=== PATIENT | male | born 1965 | race African-American/Black ===

== ENCOUNTER 2018-09-26 09:18 | Inpatient (IN) ==
--- NOTE | 2018-09-20 08:21 | EKG Report ---
Test Performed on : 09/20/2018 08:01:41 AM Test Reason : PAT Blood Pressure : / mmHG Vent. Rate : 059 BPM Atrial Rate : 059 BPM P-R Int : 150 ms QRS Dur : 080 ms QT Int : 408 ms P-R-T Axes : 070 049 065 degrees QTc Int : 403 ms Sinus bradycardia. with sinus arrhythmia. Possible Left atrial enlargement Borderline ECG When compared with ECG of 15-APR-2016 09:17, No significant change was found Confirmed by Tomasa TAFOYA, Satya Jimenez ([id number]) on 09/23/2018 9:43:53 AM
[2018-09-20 08:37] LABS: URINE SOURCE CLEAN CATCH
[2018-09-20 08:39] LABS: BASO# 0.03 X1000 (0.0-0.2); BASO% 0.3 % (0.0-0.8); EOS# 1.12 X1000 (0.0-0.7); HEMATOCRIT 39.1 % (42.0-52.0); HEMOGLOBIN 13.6 g/dL (14.0-18.0); LYMPH# 1.29 X1000 (1.2-3.4); LYMPH% 13.9 % (20.5-51.1); MCH 31.5 PG (27-31); MCHC 34.8 g/dL (33-37); MCV 90.5 FL (81-99); MONO# 0.76 X1000 (0.11-0.59); MONO% 8.2 % (1.7-9.3); MPV 10.1 FL (7.4-10.4); NEUT# 6.11 X1000 (1.4-6.5); NEUT% 65.6 % (42.2-75.2); PLT 210 X1000 (130-400); RBC 4.32 XMIL (4.7-6.1); WBC 9.31 X1000 (4.8-10.8)
[2018-09-20 08:43] LABS: BILIRUBIN URINE NEGATIVE (NEGATIVE); BLOOD URINE NEGATIVE (NEGATIVE); COLOR YELLOW; GLUCOSE URINE NEGATIVE (NEGATIVE); KETONE URINE NEGATIVE (NEGATIVE); LEUKOCYTES URINE NEGATIVE (NEGATIVE); NITRITE URINE NEGATIVE (NEGATIVE); PH URINE 5.5; PROTEIN URINE NEGATIVE (NEGATIVE); SP GRAVITY URINE 1.009; TURBIDITY URINE CLEAR (CLEAR); UR EPITHELIAL CELLS <10 /HPF (<10); URINE BACTERIA NEGATIVE /HPF; URINE RBC <10 /HPF (<10); URINE WBC <10 /HPF (<10); UROBILINOGEN URINE NORMAL (NORMAL)
[2018-09-20 08:45] LABS: INR 0.88; PROTIME 12.6 Seconds (11.0-16.0)
[2018-09-20 08:46] LABS: PTT 29.6 Seconds (22.3-41.8)
[2018-09-20 09:19] LABS: AGAP 9; BUN 10 mg/dL (8-22); CALCIUM 8.5 mg/dL (8.8-10.2); CHLORIDE 102 mmol/L (98-107); COSMO 279; CREATININE 0.8 mg/dL (0.7-1.2); ESTIMATED GFR > 60; GLUCOSE 104 mg/dL (70-104); POTASSIUM 4.1 mmol/L (3.5-5.1); SODIUM 140 mmol/L (136-145); TCO2 29 mmol/L (25-35)
[~2018-09-26 09:18] MED LIST: DIPRIVAN 1% ONE; XYLOCAINE-MPF 2% ONE
[2018-09-26] MEDS ORDERED: PEPCID ONE ×2 (09:28→09:29)
[2018-09-26] MEDS ORDERED: CELEBREX ONE ×2 (09:28→09:29)
[2018-09-26] MEDS ORDERED: COLACE ONE ×2 (09:28→09:29)
[2018-09-26] MEDS ORDERED: REGLAN ONE (09:29)
[2018-09-26] MEDS ORDERED: LYRICA ONE (09:29)
[2018-09-26] MEDS ORDERED: KEFZOL 2 GM/D5W 2 GM/50 ML IVPB ONE (09:29)
[2018-09-26] MEDS ORDERED: LR 1,000 ML ONE (09:29)
[2018-09-26] MEDS ORDERED: SODIUM CHLORIDE 0.9% ONE (10:31)
[2018-09-26] MEDS ORDERED: CYKLOKAPRON 1,000 MG/NS 1,000 MG/100 ML IVPB ONE (10:31)
[2018-09-26] MEDS ORDERED: DURAMORPH ONE (10:31)
[2018-09-26] MEDS ORDERED: SENSORCAINE-MPF 0.5%/EPI 1:200,000 ONE (10:31)
[2018-09-26] MEDS ORDERED: TORADOL ONE (10:31)
[2018-09-26] MEDS ORDERED: EXPAREL 1.3% ONE (10:32)
[2018-09-26] MEDS ORDERED: NEOSPORIN G.U. IRRIGANT ONE (10:32)
[2018-09-26] MEDS ORDERED: DECADRON ONE (12:15)
[2018-09-26] MEDS ORDERED: ZOFRAN ONE (12:15)
[2018-09-26] MEDS ORDERED: FENTANYL ONE (12:18)
[2018-09-26] MEDS ORDERED: XYLOCAINE-MPF 2% ONE (12:48)
[2018-09-26 12:53] LABS: BILIRUBIN URINE NEGATIVE (NEGATIVE); BLOOD URINE NEGATIVE (NEGATIVE); COLOR YELLOW; GLUCOSE URINE NEGATIVE (NEGATIVE); KETONE URINE NEGATIVE (NEGATIVE); LEUKOCYTES URINE NEGATIVE (NEGATIVE); NITRITE URINE NEGATIVE (NEGATIVE); PH URINE 5.5; PROTEIN URINE NEGATIVE (NEGATIVE); SP GRAVITY URINE 1.008; TURBIDITY URINE CLEAR (CLEAR); URINE SOURCE CATH; UROBILINOGEN URINE NORMAL (NORMAL)
[2018-09-26 12:54] LABS: UR EPITHELIAL CELLS <10 /HPF (<10); URINE BACTERIA NEGATIVE /HPF; URINE RBC <10 /HPF (<10); URINE WBC <10 /HPF (<10)
[2018-09-26] MEDS: DILAUDID ONE ×8 (13:45→14:22)
[2018-09-26] MEDS ORDERED: PHENERGAN ONE (13:57)
[2018-09-26] MEDS ORDERED: NS 1,000 ML ONE (14:15)
[2018-09-26] MEDS ORDERED: NS 1,000 ML IV SCH (14:30)
[2018-09-26] MEDS ORDERED: ZOFRAN ODT PO PRN (14:39)
[2018-09-26] MEDS ORDERED: OXY IR PO PRN (14:45)
[2018-09-26] MEDS ORDERED: MORPHINE IV PRN ×3 (14:45)
[2018-09-26] MEDS ORDERED: ZOFRAN IV PRN (14:45)
[2018-09-26] MEDS ORDERED: AMBIEN PO PRN (14:45)
--- NOTE | 2018-09-26 15:48 | OPERATIVE NOTE ---
PROCEDURE DATE: 09/26/2018 PREOPERATIVE DIAGNOSIS: Avascular necrosis, right hip. POSTOPERATIVE DIAGNOSIS: Avascular necrosis, right hip. PROCEDURE: Anterior hip replacement, right hip. SURGEON: Jose Luis Prado MD. MOLD HOLDER: SNEHAL Johnson. Mr. Zamarripa was necessary for proper retraction and manipulation of the leg. ANESTHESIA: General. COMPLICATION: None. PROCEDURE IN DETAIL: This 53-year-old male presents for a total hip replacement of collapsing avascular necrosis of the right hip. Risks, benefits, and no guarantees were discussed, and he was willing to proceed. He was taken to the operating room and satisfactory anesthesia obtained. The patient was placed on the Encinal table and prep and drape undertaken in the usual sterile fashion. A time-out was taken to confirm operative site, procedure, and patient. The anterior approach to the right hip was then undertaken beginning with an incision 1 cm distal and lateral to the anterior superior iliac spine and carried over the anterior thigh slightly laterally distally for 12 cm. Dissection was carried down through the skin and subcutaneous fat to the fascia of the tensor fascia titi. This was then split in line with the incision and blunt dissection under taken down to the anterior hip capsule. Cobra retractors were placed over the superior and inferior aspect of the femoral neck and a capsulotomy incision made. At this point, an AP pelvis was made to reference leg lengths for the hip replacement. An osteotomy was made roughly 8 mm above the lesser trochanter and the femoral head removed. A small Cobra retractor placed directly on the anterior acetabular bone to protect the anterior neurovascular bundle during reaming. Reaming up to a 55 reamer was undertaken. Slight inner wall penetration at the fovea was noted. A 56 cup trial was noted to be stable in the acetabular socket with good corticocancellous and structural bone. To bone graft the fovea, some shavings of the corticocancellous bone were packed into this and, under fluoroscopic guidance, a [place] KIRK coated 56 outer diameter cup impacted into the acetabulum in roughly 45 degrees of abduction and 10-15 degrees of anteversion. Two additional 25 length screws were placed through the cup and into the bone for additional fixation. A 36 mm inner diameter 0 degree polyethylene bearing was then impacted into the cup. The cup, bone, and polyethylene bearing shell interface was checked and noted to be stable. Traction was released off the leg and the Encinal table used to extend and externally rotate the proximal femur for broaching. Sequential broaching was undertaken up to an Active 7 stem which had good axial and rotational stability. A standard neck with a +5 36 trial head reproduced leg length and was stable. Trial implant was removed and a size 7 standard collar active stem impacted into the proximal femur with secure axial and rotational stability. A +5 neck 36 mm ceramic head was then impacted onto this and the hip reduced. Stability was assessed by dropping the leg all the way to the floor with the hip extended and externally rotated roughly 55% to 60% degrees without any dislocation. Leg lengths were roughly equal. An AP and lateral x- rays demonstrated good alignment of the prosthesis. The wound was copiously irrigated with irrigant. A Hemovac drain was placed. The deep capsule and subcutaneous and skin was injected with Exparel for pain management. The wound was then closed in layers with a running V-Loc suture in the fascia of the tensor fascia, 2-0 Vicryl in the subcutaneous and skin leelee on the skin edges. Sterile dressings completed the closure, and the patient was recovered from anesthesia and transferred to the recovery room in stable condition. No intraoperative complications were noted. Instrument count and sponge count were correct at the time of closure. cc: Brian Prado MD
[2018-09-26] MEDS ORDERED: CYKLOKAPRON 1,000 MG in NS 100 ML IV ONE (18:00)
[2018-09-26] MEDS: TYLENOL PO SCH ×2 (18:18→22:05)
[2018-09-26] MEDS: ULTRAM PO SCH ×2 (18:19→22:03)
--- NOTE | 2018-09-26 18:50 | PROGRESS NOTE ---
DATE: 09/26/2018 Mr. Perrin is seen status post anterior hip replacement. He is afebrile with stable vital signs the present time. He appears to be motor and sensory intact with good quadriceps and hamstring function as well as ankle dorsi and plantar flexion. His bandage is clean and dry. He is comfortable the present time. We will plan on mobilizing him, discharge home possibly tomorrow. cc: Brian Prado MD
[2018-09-26] MEDS: NICODERM PATCH TD SCH (19:53)
[2018-09-26] MEDS: CELEBREX PO SCH (22:03)
[2018-09-26] MEDS: KEFZOL 2 GM/D5W 2 GM/50 ML IVPB IV SCH (22:05)
[2018-09-26] MEDS: PERIDEX MT SCH (22:06)
[2018-09-26] MEDS: COLACE PO SCH (22:06)
[2018-09-27] MEDS: OXY IR PO PRN ×3 (00:33→12:11)
[2018-09-27] MEDS: TYLENOL PO SCH ×2 (03:13→08:22)
[2018-09-27] MEDS: ULTRAM PO SCH ×2 (03:13→08:22)
[2018-09-27] MEDS: KEFZOL 2 GM/D5W 2 GM/50 ML IVPB IV SCH (06:18)
[2018-09-27 07:07] LABS: HEMATOCRIT 31.9 % (42.0-52.0)
--- NOTE | 2018-09-27 07:49 | PROGRESS NOTE ---
DATE: 09/27/2018 SUBJECTIVE: Mr. Perrin is seen status post anterior hip replacement. OBJECTIVE: At the present time, he is afebrile with stable vital signs. His incision is clean and dry. His motor and sensory intact. We will plan on mobilizing him today and changing out his bandage and discontinuing all lines. He can be discharged home for outpatient followup. We will see him back in 2 weeks. He is to continue his regular medicines and also [place] 10 as needed for pain and aspirin 325 twice a day for DVT prophylaxis. He is to be partial weightbearing on the right hip. We will see him back in 2 weeks or sooner for any worsening signs or symptoms. cc: Brian Prado MD
[2018-09-27 07:50] LABS: AGAP 10; BUN 15 mg/dL (8-22); CALCIUM 8.2 mg/dL (8.8-10.2); CHLORIDE 104 mmol/L (98-107); COSMO 281; ESTIMATED GFR > 60; GLUCOSE 110 mg/dL (70-104); POTASSIUM 4.9 mmol/L (3.5-5.1); SODIUM 140 mmol/L (136-145); TCO2 26 mmol/L (25-35)
[2018-09-27] MEDS: CELEBREX PO SCH (08:22)
[2018-09-27] MEDS: NICODERM PATCH TD SCH (08:22)
[2018-09-27] MEDS: PERIDEX MT SCH (08:23)
[2018-09-27] MEDS: COLACE PO SCH (08:23)
[2018-09-27] MEDS ORDERED: PEPCID PO SCH (09:00)
[2018-09-27] MEDS ORDERED: ASPIRIN PO SCH (09:00)
[2018-09-27 12:13] VITALS: BP 141/81
== END 2018-09-27 15:10 | disposition home or self-care (01) | DRG 470 ==
LOC: SURHOLD 09:18 → 4N 11:55
PROVIDERS: ADMIT Orthopaedic Surgery Adult Reconstructive Orthopaedic Surgery; ATTEND Orthopaedic Surgery Adult Reconstructive Orthopaedic Surgery
CPT/HCPCS: 76000; 80048; 81001; 85014; 85018; 85025; 85610; 85730; 86850; 86900; 86901; 93005; 94761; 94799; 97110; 97116; 97162; 97530; A9270; C9290; J0690; J1100; J1170; J1885; J2274; J2275; J2405; J2550; J3010; J7030; J7120; Q9974

== ENCOUNTER 2019-05-25 11:59 | Inpatient (IN) ==
[2019-05-25] MEDS ORDERED: NS 1,000 ML IV ONE ×3 (15:10→17:23)
[2019-05-25 15:59] LABS: BASO# 0.01 X1000 (0.0-0.2); BASO% 0.1 % (0.0-0.8); EOS# 0.03 X1000 (0.0-0.7); EOS% 0.2 % (0.0-10.0); HEMATOCRIT 43.8 % (42.0-52.0); HEMOGLOBIN 15.2 g/dL (14.0-18.0); IMM GRAN# 0.03 X1000 (0.0-0.04); IMM GRAN% 0.2 % (0.0-0.5); MCH 29.8 PG (27-31); MCHC 34.7 g/dL (33-37); MCV 85.9 FL (81-99); MONO# 1.22 X1000 (0.11-0.59); MONO% 8.3 % (1.7-9.3); NEUT# 11.21 X1000 (1.4-6.5); NEUT% 76.2 % (42.2-75.2); PLT 261 X1000 (130-400); RDW 14.6 % (11.5-14.5)
[2019-05-25 16:06] LABS: BILIRUBIN URINE NEGATIVE (NEGATIVE); BLOOD URINE NEGATIVE (NEGATIVE); CLARITY CLEAR (CLEAR); COLOR YELLOW; GLUCOSE URINE NEGATIVE (NEGATIVE); KETONE URINE 1+(Small) mg/dL (NEGATIVE); LEUKOCYTES URINE TRACE (NEGATIVE); NITRITE URINE NEGATIVE (NEGATIVE); PH URINE 6.5; PROTEIN URINE TRACE mg/dL (NEGATIVE); SP GRAVITY URINE 1.015; UROBILINOGEN URINE NORMAL
[2019-05-25] MEDS ORDERED: ZOFRAN IV ONE (16:18)
--- NOTE | 2019-05-25 16:19 | PROVIDER DOCUMENTATION ---
HPI-Abdominal Pain/GI Problem - General Chief Complaint: Return/Recheck Stated Complaint: VOMITTING Time Seen by Provider: 05/25/19 15:10 Source: patient Allergies/Adverse Reactions: Patient Allergies Allergy/AdvReac Type Severity Reaction Status Date / Time No Known Allergies Allergy Verified 05/25/19 14:23 Home Medications: Home Medication List Medication Instructions Recorded Confirmed Last Taken Type NK [No Home Medications] 05/23/19 05/25/19 Unknown History - History of Present Illness-ABD Nature of Presenting Problems: 54 yobm presents to the ED today for vomiting. he reports he was seen here on Tuesday, he states he got here vomiting and left vomiting. he denies abdominal pain, reports it is sore from vomiting. he reports he was told he had a UTI but did not receive any prescriptions. patient is a poor historian. he has a dry cough on assessment. when i asked how long he has had the cough- he stated "i smoke too many cigarettes if that's what you are hinting at". patient is warm to touch, denies fever at home. patient appears sick. diaphoretic on assessment. no distress noted. Abdominal Pain Onset Location: reports: generalized abdomen Pain Radiation: reports: no radiation Quality of Pain: reports: other (soreness) Severity in ED: reports: moderate Onset/Duration: reports: 3 days ago Timing: reports: still present Modifying Factors: worse with: vomiting Associated Symptoms: reports: cough, diaphoresis, fatigue, nausea, vomiting. denies: anxiety, arm pain, chest pain, constipation, diarrhea, dizziness, fever/chills, genitourinary problems, headaches, heartburn, shortness of breath, syncope Last BM: unsure Dark Stools Present?: reports: none noticed Rectal Bleeding: reports: none Rectal Pain: reports: none Bruising or Bleeding Gums?: No Similar Symptoms Previously?: Yes Recently seen or treated by another doctor?: Yes Review of Systems - Adult - REVIEW OF SYSTEMS - ADULT Constitutional: reports: no symptoms reported. denies: chills, fever Eyes: reports: no symptoms reported Ears, Nose, Mouth & Throat: reports: no symptoms reported Cardiovascular: reports: no symptoms reported. denies: chest pain, palpitations Respiratory: reports: cough. denies: shortness of breath, wheezing Gastrointestinal: reports: abdominal pain, nausea, vomiting. denies: constipation, diarrhea Genitourinary: reports: no symptoms reported. denies: frequency, urgency Musculoskeletal: reports: no symptoms reported Integumentary: reports: no symptoms reported Neurological: reports: no symptoms reported. denies: dizziness/vertigo, headache/migraines Psychiatric: reports: no symptoms reported Endocrine: reports: no symptoms reported Hematologic/Lymphatic: reports: no symptoms reported Allergic/Immunologic: reports: no symptoms reported All Other Systems: Reviewed and Negative Past History - Adult - PAST MEDICAL HISTORY-ADULT Review of Records: reports: Old Records Reviewed, Nursing Assessment Review, Medications Reviewed Major Childhood Illnesses: reports: denies history Cardiovascular: reports: denies history Respiratory: reports: denies history Gastrointestinal: reports: GERD, ulcer Obstetrical/Gynecological: reports: denies history Genitourinary: reports: denies history Musculoskeletal: reports: chronic pain (shoulder, legs) Neurological: reports: denies history Psychiatric: reports: denies history Endocrine/Immune: reports: denies history Other Conditions: reports: denies history - PRIOR SURGERIES/PROCEDURES Surgical/Procedure History: reports: reviewed, not pertinent, orthopedic (extremity) (leg reconstructive sx) - IMMUNIZATION STATUS Childhood Immunizations: See Nurse Assessment Flu Vaccine: See Nurse Assessment - FAMILY HISTORY Family History: reviewed, not pertinent - SOCIAL HISTORY Smoking: cigarettes Provider spent 3-5 mins advising pt. on dangers of tobacco.: Discussed manners to quit use, and f/u contacts for add'l counseling. Physical Exam-General - PHYSICAL EXAM-ADULT Initial Vital Signs Reviewed: Yes - CONSTITUTIONAL General Appearance: alert, mild distress - EYES Eyes: PERRL/EOMI - HEAD, EARS, NOSE, MOUTH & THROAT HENMT: normocephalic/atraumatic, moist mucous membranes - NECK Neck: full range of motion, supple - RESPIRATORY Respiratory: chest non-tender, normal breath sounds, no pleuratic chest pain, no respiratory distress, no accessory muscle use, crackles (bilateral lower lobes), wheezing (bilateral) - CARDIOVASCULAR Cardiovascular: regular rate, rhythm, no edema, no JVD - GASTROINTESTINAL (ABDOMEN) Abdominal Exam: normal bowel sounds, non tender, soft. negative: distended, g uarding, rigid, rebound - LYMPHATIC Lymphatic: no adenopathy - MUSCULOSKELETAL Back Exam: no CVA tenderness, no vertebral tenderness Extremity: normal range of motion, normal capillary refill - SKIN Integumentary: normal color, normal turgor, warm/dry - NEUROLOGIC Neurologic: grossly normal, no motor/sensory deficits - PSYCHIATRIC Psych/Mental Status: normal mood/affect, normal thought content, normal thought process, oriented x 3 Progress - PLAN OF CARE/RESULTS Progress/Plan/Lab Results: Vital Signs - 8 hr 05/25/19 12:09 Temperature 97.8 F Pulse Rate 84 Respiratory Rate 18 Blood Pressure 134/89 O2 Sat by Pulse Oximetry 98 Laboratory Results - last 24 hr 05/25/19 05/25/19 15:44 15:44 WBC 14.70 H RBC 5.10 Hgb 15.2 Hct 43.8 MCV 85.9 MCH 29.8 MCHC 34.7 RDW Std Deviation 14.6 H Plt Count 261 MPV 10.0 Immature Gran % (Auto) 0.2 Neut % (Auto) 76.2 H Lymph % (Auto) 15.0 L [place] % (Auto) 8.3 Eos % (Auto) 0.2 Baso % (Auto) 0.1 Immature Gran # (Auto) 0.03 Neut # (Auto) 11.21 H Lymph # (Auto) 2.20 [place] # (Auto) 1.22 H Eos # (Auto) 0.03 Baso # (Auto) 0.01 Urine Color YELLOW Urine Clarity CLEAR Urine pH 6.5 Ur Specific [place] 1.015 Urine Protein TRACE A Urine Ketones 1+(Small) A Urine Blood NEGATIVE Urine Nitrite NEGATIVE Urine Bilirubin NEGATIVE Urine Urobilinogen NORMAL Urine WBC TRACE A Urine Glucose NEGATIVE Orders Category Date Time Status CHEST-2 VIEWS [RAD] Stat Exams 05/25/19 16:13 Ordered CBC WITH ELECTRONIC DIFF [HEME] Stat Lab 05/25/19 15:44 Completed CK PROFILE [SP CHEM] Stat Lab 05/25/19 15:44 Received COMPREHENSIVE METABOLIC PANEL [CHEM] Stat Lab 05/25/19 15:[address] W/POSS RFLX CULT [URINALYSIS] Stat Lab 05/25/19 15:44 Results 0.9% Sodium Chloride Inj [Ns] 1,000 ml Med 05/25/19 15:10 Discontinued IV 999 mls/hr discussed plan of care with patient- he understands and agrees with plan of care and denies any questions at this time. 1705: care accepted from Katelyn BRIAN. pt was reassessed reports he remains nauseated. Denies abdominal pain and is nontender on exam in all four quadrants. 171: discussed admission with pt who is in agreement Result Diagrams: 05/25/19 15:44 05/25/19 15:44 - XRAY 1 XRAY Study: Chest Impression: See EMR Report (EXAM: CHEST-2 VIEWS 05/25/2019 HISTORY: fever/elevated white count TECHNIQUE: PA and lateral chest COMMENT: There is no evidence of acute cardiac or pulmonary disease. Compared to 09/09/2018 there has been no significant change in the appearance of the chest. IMPRESSION: No evidence of acute disease. Electronically signed by Jose Chanel 05/25/2019 4:49 PM 05/25/191648 Interpreting Physician: Jose Chanel MD Dictated Date/Time: 05/25/191648 cc: Peri Ny; None,PCP) - CONSULTS/PCP/HOSPITALIST Notification #1 *Consult/PCP/Hospitalist*: Dr. Conti Time Discussed: 17:21 Consult Disposition: Admit - CHANGE OF SHIFT REPORT (ED Provider) 1 Report Given and Care Transferred to:: SNEHAL Lloyd Time of Transfer: 17:00 Items Pending: Labs, XRAY Results Departure - Departure Date of Disposition Decision: 05/25/19 Time of Disposition Decision: 17:20 DIAGNOSIS: Rhabdomyolysis, UTI (urinary tract infection) Intractable vomiting Qualifiers: Vomiting type: unspecified Nausea presence: with nausea Qualified Code(s): R11.2 - Nausea with vomiting, unspecified Disposition: ADMITTED INPATIENT 09 Certified Medical Emergency: Emergent Condition: Stable Referrals and Follow-Ups: None,PCP [Primary Care Provider] - - Critical Care Note This patient required my direct & personal management of CC.: No Attestation - Physician/ MERRY Attestation Patient care was provided by Advanced Practice Provider:: Yes Advanced Practice Provider:: Peri Ny Advanced Practice Provider documentation review:: The Mid-level provider documentation, treatment plan and medical decision making was reviewed by the physician who agrees with all treatment and medical decision making by the MLP. The physician spent face to face time with patient:: No Advanced Practice Provider documentation review:: Supervising physician onsite and consulted in the evaluation and care of this patient. The physician did not have a face to face encounter with the patient.
[2019-05-25 16:23] LABS: ALBUMIN 4.5 g/dL (3.5-5.0); CALCIUM 9.3 mg/dL (8.8-10.2); CREATININE 1.3 mg/dL (0.7-1.2); POTASSIUM 4.5 mmol/L (3.5-5.1); TOTAL BILIRUBIN 0.4 mg/dL (0.20-1.00); TOTAL PROTEIN 7.5 g/dL (6.3-8.3)
[2019-05-25 16:38] LABS: URINE EPITHELIAL CELLS >10 /HPF (<10); URINE RBC <10 /HPF (<10); URINE SOURCE CLEAN CATCH
[2019-05-25 16:39] LABS: URINE BACTERIA 2+ /HFP; URINE CAST NONE SEEN /LPF; URINE CRYSTAL NONE SEEN /HPF; URINE YEAST NONE SEEN /HPF
--- NOTE | 2019-05-25 16:52 | Diag Imaging Result Doc PS360 ---
EXAM: CHEST-2 VIEWS 05/25/2019 HISTORY: fever/elevated white count TECHNIQUE: PA and lateral chest COMMENT: There is no evidence of acute cardiac or pulmonary disease. Compared to 09/09/2018 there has been no significant change in the appearance of the chest. IMPRESSION: No evidence of acute disease. Electronically signed by Jose Chanel 05/25/2019 4:49 PM
[2019-05-25] MEDS ORDERED: ROCEPHIN 1 GM in NS 50 ML IV ONE (16:58)
[2019-05-25 17:15] LABS: CK INDEX 0.3 (0.0-2.5); CK-MB 3.52 ng/mL (0.0-5.0)
[2019-05-25 17:28] LABS: AMYLASE 106 U/L (20-200); LIPASE 48 U/L (13-60)
[2019-05-25] MEDS ORDERED: PROTONIX PO ONE (17:52)
[2019-05-25] MEDS: ROCEPHIN 1 GM in NS 50 ML IV SCH (18:13)
[2019-05-25] MEDS: THORAZINE PO SCH (18:19)
[2019-05-25 18:25] LABS: UR AMPHETAMINES QUAL NONE DETECTED (NONE DETECT); UR BARBITUATES QUAL NONE DETECTED (NONE DETECT); UR BENZODIAZEPIN QUAL NONE DETECTED (NONE DETECT); UR CANNABINOIDS QUAL PRESUMPTIVE POSITIVE (NONE DETECT); UR COCAINE QUAL NONE DETECTED (NONE DETECT); UR METHADONE QUAL NONE DETECTED (NONE DETECT); UR METHAMPHETAMINE QUAL NONE DETECTED (NONE DETECT); UR OPIATES QUAL NONE DETECTED (NONE DETECT); UR OXYCODONE QUAL NONE DETECTED (NONE DETECT); UR PCP QUAL NONE DETECTED (NONE DETECT); UR PROPOXYPHENE QUAL NONE DETECTED (NONE DETECT); UR TCA QUAL NONE DETECTED (NONE DETECT)
--- NOTE | 2019-05-25 19:38 | HISTORY AND PHYSICAL ---
CHIEF COMPLAINT: Vomiting. HISTORY OF PRESENT ILLNESS: This is a 54-year-old gentleman who presented to the emergency room complaining of vomiting that has been present for approximately 3 days. The patient 1st presented to the emergency room at [place] on May 23 comply complaining of nausea, vomiting, feeling he was overheated. 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 At that time he reported vomiting, generalized body cramping. He was found to have a urinary tract infection with a creatinine of 1.8. He returns to the emergency room today complaining of persistent vomiting, stating that he has had no relief. He did state that he was not given antibiotics for his urinary tract infection for the visit on May 23. He is noted to have a dry cough. He states that this is chronic secondary to cigarette smoking. PAST MEDICAL HISTORY: Denies. PAST SURGICAL HISTORY: Total hip replacement and reconstructive surgery on his leg. SOCIAL HISTORY: He smokes a pack a day. He drinks social alcohol. He does use marijuana. ALLERGIES: No known drug allergies. HOME MEDICATIONS: None. REVIEW OF SYSTEMS: Discussed with the patient with pertinent positives stated in the HPI. He denied any syncope or dizziness, any chest pain or palpitations, any black or bloody vomitus, any diarrhea, constipation, black or bloody stools, hematuria, dysuria, frequency, urgency. PHYSICAL EXAMINATION: GENERAL: This is a 54-year-old gentleman who is lying on the stretcher in the emergency room in no distress. VITAL SIGNS: Blood pressure is 134/89 with a heart rate of 84, respirations are 18, temperature is 97.8 degrees oral with room air saturations 98%. EYES: Pupils equal, round, react to light. EOMs are intact. Sclerae anicteric. HEENT: Head is normocephalic, atraumatic. Mucous membranes are moist. NECK: Supple with trachea midline. CARDIOVASCULAR: Regular rate and rhythm. S1 and S2 appreciated. He has no lower extremity edema. Calves are nontender with peripheral pulses palpable x4 extremities. PULMONARY: Breath sounds with wheezes scattered throughout. Chest rises and falls symmetric with respiration. Chest wall is nontender to palpation. GASTROINTESTINAL: Abdomen is soft, nontender, nondistended with bowel sounds in all 4 quadrants. GENITOURINARY: No CVA or suprapubic tenderness. NEUROLOGIC: He is alert and oriented x3. SKIN: Warm and dry. LABORATORY DATA: WBC is 14 with hemoglobin 15.2, hematocrit 43.8, and platelets of 261,000. Sodium 141, potassium 4.5, BUN 21, creatinine 1.3 with a glucose of 105. CPK is 1151. Urinalysis reveals 10 to 20 microscopic white blood cells with greater than 10 epithelial cells and 2+ bacteria, which is really consistent with contamination. ASSESSMENT AND PLAN: 1. Rhabdomyolysis. He received 3 L of IV fluids in the emergency room. We will continue IV hydration at 100 mL an hour. We will check a CPK tonight and then 1 in the morning. 2. Nausea, vomiting. We will give clear liquids as tolerated. At present, use Zofran for nausea. 3. Acute kidney injury. We will continue with IV hydration, hold any renal toxic medications. Renal dose as appropriate and recheck labs in the morning. 4. Possible urinary tract infection. Continue with Rocephin. Of note, culture from 05/23 revealed no growth and further antibiotics will be culture driven. 5. Hiccups. Thorazine 25 mg q.8 hours. 6. Wheezing in a patient with chronic nicotine abuse. Give DuoNeb q.4 hours. 7. Gastrointestinal prophylaxis will use Protonix. 8. Will check a CBC, CMP, total CK and magnesium in the morning. Plan was discussed with Dr. Rodriguez. Further treatments pending hospital course. Dictated by SNEHAL Kyle for Maxim Rodriguez MD cc: SNEHAL Kyle MD
--- NOTE | 2019-05-25 20:09 | HISTORY AND PHYSICAL ---
ADDENDUM: Patient seen and examined by myself. Full note dictated and discussed with nurse practitioner. The patient presented to the hospital with vomiting and cramping. States that he got overheated at work. He is also having significant hiccups. He was told recently that he had a urinary tract infection, but for some unknown reasons, did not fill the prescription. The patient currently has mild rhabdomyolysis with a CPK of 1000. We are going to admit him to the hospital, treat him with IV fluids and antibiotics for his urinary tract infection, and will follow. cc: Maxim Rodriguez MD MTDD
[2019-05-25] MEDS: DUONEB (A & A) INH SCH (20:31)
[2019-05-25] MEDS: NS 1,000 ML IV SCH (20:43)
[2019-05-26] MEDS: DUONEB (A & A) INH SCH ×7 (00:11→23:17)
[2019-05-26] MEDS: THORAZINE PO SCH ×4 (01:09→17:25)
[2019-05-26] MEDS: NS 1,000 ML IV SCH (06:41)
[2019-05-26] MEDS: PROTONIX PO SCH (06:41)
[2019-05-26 06:55] LABS: AGAP 10; ALBUMIN 3.3 g/dL (3.5-5.0); ALKALINE PHOSPHATASE 66 U/L (32-122); BUN 17 mg/dL (8-22); CALCIUM 7.9 mg/dL (8.8-10.2); CHLORIDE 107 mmol/L (98-107); CK TOTAL 718 U/L (24-204); COSMO 286; ESTIMATED GFR > 60; GLUCOSE 98 mg/dL (70-104); GOT 21 U/L (10-34); GPT 15 U/L (10-44); MAGNESIUM 1.8 mg/dL (1.5-2.7); POTASSIUM 4.1 mmol/L (3.5-5.1); SODIUM 143 mmol/L (136-145); TCO2 27 mmol/L (25-35); TOTAL PROTEIN 5.6 g/dL (6.3-8.3)
[2019-05-26] MEDS: ZOFRAN IV PRN ×2 (08:53→13:01)
--- NOTE | 2019-05-26 17:23 | PROGRESS NOTE ---
DATE: 05/26/2019 SUBJECTIVE: Patient notes he is still having lots of nausea, abdominal cramping and pain. Denies any dysuria, frequency, urgency. Denies any fevers, chest pain, or palpitations. States his muscle aches have improved. PHYSICAL EXAMINATION: Vital Signs: Temperature 98.3 degrees, pulse 63, BP 138/82. General: Patient is awake. He is in no distress. HEENT: Normocephalic. Neck: Supple. Cardiovascular: Regular rate. Chest: Clear. Abdomen: Soft. Extremities: Moves all extremities. ASSESSMENT: 1. Nausea vomiting of undetermined origin. 2. Rhabdomyolysis, resolved. CPK has dropped from 1156 to 718. 3. Acute kidney injury, resolved. 4. Hiccups, resolved. 5. Chronic nicotine abuse. PLAN: We will continue patient in the hospital. Continue fluids and Zofran. Will advance his diet. Hopefully, this will improve his nausea. If not, will need ultrasound, n.p.o., and further evaluation. cc: Maxim Rodriguez MD
[2019-05-26] MEDS: NICODERM PATCH TD SCH (17:25)
[2019-05-26] MEDS: ROCEPHIN 1 GM in NS 50 ML IV SCH (17:25)
[2019-05-27] MEDS: THORAZINE PO SCH ×2 (02:17→09:51)
[2019-05-27] MEDS: DUONEB (A & A) INH SCH ×3 (02:52→11:20)
[2019-05-27] MEDS: PROTONIX PO SCH (06:31)
[2019-05-27 06:52] LABS: HEMATOCRIT 35.6 % (42.0-52.0); MCH 29.1 PG (27-31); MCHC 33.7 g/dL (33-37); MCV 86.4 FL (81-99); MPV 10.1 FL (7.4-10.4); RBC 4.12 XMIL (4.7-6.1); RDW 14.1 % (11.5-14.5); WBC 9.08 X1000 (4.8-10.8)
[2019-05-27 07:12] LABS: AGAP 9; BUN 11 mg/dL (8-22); CALCIUM 7.8 mg/dL (8.8-10.2); CHLORIDE 106 mmol/L (98-107); CK TOTAL 501 U/L (24-204); COSMO 281; ESTIMATED GFR > 60; GLUCOSE 100 mg/dL (70-104); POTASSIUM 3.3 mmol/L (3.5-5.1); SODIUM 141 mmol/L (136-145); TCO2 26 mmol/L (25-35)
[2019-05-27 07:14] VITALS: BP 130/90
[2019-05-27] MEDS: NICODERM PATCH TD SCH (09:51)
--- NOTE | 2019-05-27 15:50 | DISCHARGE SUMMARY ---
ADMISSION DATE: 05/25/2019 DISCHARGE DATE: 05/27/2019 DIAGNOSES: 1. Rhabdomyolysis with CPK now dropped from 1156 to 501. 2. Nausea and vomiting resolved. 3. Acute kidney injury, resolved. 4. Hiccups, resolved. 5. Chronic nicotine abuse. DIAGNOSTICS: 1. Chest x-ray revealed no evidence of acute disease. 2. Urine culture revealed no growth. HOSPITAL COURSE: Mr. Perrin presented to the emergency room 1st on the then again on May 25 complaining of nausea, vomiting. The patient works in a steel mill and on the visit on the he felt that he had overheated working in the heat all day with very little ventilation, CPK was 283 at that time, return visit on the CPK was 1156. He received IV hydration. CPK has slowly fallen as stated above. He has had no further nausea and vomiting, tolerating a GI soft diet with no difficulty. Urine culture revealed no growth. His initial creatinine was 1.3, after hydration this is down to 1. He did have hiccups. These resolved after Thorazine. He did have some wheezes which he states are chronic for which he was given duo nebs and these did resolve. Today he is feeling better and thankfully is ready to be discharged home. DISCHARGE PHYSICAL EXAM: Vital signs: Blood pressure is 130/90 with heart rate of 61, respirations 18, temperature 98 degrees with room air saturations 99%. Cardiovascular: Regular rate and rhythm. S1 and S2 appreciated. He has no lower extremity edema. Peripheral pulses are palpable x4 extremities. Calves are nontender bilateral. Pulmonary: Breath sounds are clear with no increased work of breathing noted. Gastrointestinal: Abdomen soft, nontender, nondistended. Bowel sounds in all 4 quadrants. Neurologic: He is alert and oriented x3. Skin: Is warm and dry. DISCHARGE MEDICATIONS: 1. Thorazine 25 mg p.o. q.8 hours. 2. Omnicef 300 mg p.o. b.i.d. for 3 days. FOLLOWUP: He is to follow up with his primary care physician./ If he has none he has been given the number to the physician referral line to call and get a list of physicians that are taking new patients. He has been instructed to call to be seen sooner or return to the ER for any syncope, dizziness, chest pain, palpitations, shortness of breath, cough, temperature greater than 101 nausea, vomiting, diarrhea, constipation, black or bloody vomitus or stools, any hematuria, dysuria, frequency, urgency. He is being discharged home in stable condition with family members. TIME SPENT: Greater than 30 minutes. Dictated by SNEHAL Kyle for Maxim Rodriguez MD cc: SNEHAL Kyle MD
--- NOTE | 2019-05-27 18:58 | DISCHARGE SUMMARY ---
ADMISSION DATE: 05/25/2019 DISCHARGE DATE: 05/27/2019 DISCHARGE DIAGNOSES: 1. Rhabdomyolysis, resolved. CPK 1156 admit; 718 discharge. 2. Nausea and vomiting, resolved. 3. Acute kidney injury, resolved. 4. Urinary tract infection. 5. Hiccups, resolved. 6. Chronic tobacco abuse. 7. Chronic marijuana usage. CONSULTATIONS: None. PROCEDURES: None. BRIEF HOSPITAL COURSE: The patient is a 54-year-old male who presented to [facility] with nausea, vomiting, and abdominal pain. Notes he has been off work for several weeks, and he had just gone back to work. States that he may have overdone at work. He started feeling nauseated. Certainly could have had heat exhaustion; however, I feel that it was more volume depletion. He does note that he does not drink enough at home, and his urine is typically dark; and it was that way before he went to work. Started having increased muscle aches, nausea, and vomiting. He was admitted to the hospital for rhabdomyolysis and volume depletion. He was having significant abdominal pain and nausea. Thankfully, this improved. On discharge, he is awake and alert. He is in no distress. Overall, he states he is feeling better. He tolerated a full breakfast and lunch prior to discharge. DISPOSITION: Patient will be discharged home. Discussed with him the importance of oral rehydration and staying well hydrated before he goes to work and after he comes home. Discussed the importance of stopping smoking as well as stopping marijuana usage. cc: Maxim Rodriguez MD
== END 2019-05-27 14:30 | disposition home or self-care (01) | DRG 558 ==
LOC: P.ED 11:59 → P.MEDSURG 18:47
PROVIDERS: ATTEND Family Medicine